=== PATIENT | male | born 1945 | race Caucasian/White ===

== ENCOUNTER 2020-02-03 15:48 | Emergency (ER) | payer MEDICAID ==
[~2020-02-03] VITALS: Ht 172.7 cm; Wt 104.3 kg
[2020-02-03] MEDS ORDERED: NEOMY/BACITRA/POLYMYXIN B OINT UD PACKET TP ONE ×2 (16:02→16:15)
--- NOTE | 2020-02-03 16:11 | NUR ---
Patient discharged to home in stable condition & steady gait. Written and verbal after care instructions given to patient. Patient verbalized understanding & compliance of instructions. Emphasized and stressed to follow up with his own PMD or return to ER for worsening of s/s. Family members picked up the patient.
== END 2020-02-03 16:15 | disposition home or self-care (01) ==
LOC: ER 15:55
DX: S60.222A Contusion of left hand, initial encounter (principal); S60.411A Abrasion of left index finger, initial encounter; V49.40XA Driver injured in collision with unspecified motor vehicles in traffic accident, initial encounter; Y92.410 Unspecified street and highway as the place of occurrence of the external cause
CPT/HCPCS: A4663